=== PATIENT | male | born 1945 | race Hispanic/Latino ===

== ENCOUNTER 2023-11-19 13:30 | Observation (INO) | payer MEDICARE ==
[2023-11-19 14:25] LABS: #Basophils 0.1 thou/uL (0.0-0.2); #Eosinphils 0.1 thou/uL (0.0-0.7); #Monocytes 0.5 thou/uL (0.11-0.59); #Neutrophils 4.6 thou/uL (1.40-6.50); %Basophils 1.1 % (0.0-1.0); %Eosinophils 2.1 % (0.0-10.0); %Lymphocytes 18.8 % (21.0-51.0); %Neutrophils 69.4 % (42.0-75.0); Hematocrit 39.8 % (42.0-52.0); Mean Corpuscular HGB CONC 32.7 g/dL (32.0-36.0); Mean Corpuscular Hemoglobin 30.2 pg (27.0-31.0); Mean Corpuscular Volume 92.6 fl (78.0-98.0); Mean Platelet Volume 10.2 fL (7.4-10.4); Platelet Count 207 10x3/uL (130-400); RBC Distribution Width 13.6 % (11.5-14.5); White Blood Cell (WBC) Count 6.6 10x3/uL (4.8-10.8)
[2023-11-19] MEDS ORDERED: Aspirin Chewable 81 MG TAB ONE (14:34)
[2023-11-19 14:53] LABS: INR-International Normal Ratio 1.1; Prothrombin Time 14.4 sec (12.0-14.7)
[2023-11-19 14:54] LABS: PTT 30.1 sec (22.9-36.1)
[2023-11-19 14:58] LABS: ALT (SGPT) 8 U/L (8-55); AST (SGOT) 12 U/L (5-34); Albumin 3.5 g/dL (3.4-4.8); Alkaline Phosphatase 69 U/L (40-110); Anion Gap 7 mmol/L (10-20); BUN (Urea Nitrogen) 15 mg/dL (8.4-25.7); Bilirubin, Total 0.7 mg/dL (0.2-1.2); Calc. Creatinine Clearance 0 mL/min (70-130); Calcium 8.7 mg/dL (7.8-10.44); Carbon Dioxide 30 mmol/L (23-31); Chloride 103 mmol/L (98-107); Estimated GFR 57; Globulin 2.7 g/dL (2.4-3.5); Glucose 86 mg/dL (83-110); Lipase 10 U/L (8-78); Potassium 3.9 mmol/L (3.5-5.1); Protein, Total 6.2 g/dL (5.8-8.1); Sodium 136 mmol/L (136-145)
[2023-11-19 18:22] LABS: Troponin I 0.013 ng/mL (< 0.028)
[2023-11-19] MEDS ORDERED: Ondansetron ODT 4 MG TAB PO PRN (19:11)
[2023-11-19] MEDS ORDERED: Acetaminophen 325 MG TAB PO PRN (19:11)
[2023-11-19] MEDS ORDERED: Nicotine 21 MG PATCH TD SCH (19:15)
[2023-11-19 19:49] LABS: Hemoglobin A1c 5.6 % (4.0-6.0)
[2023-11-19 20:19] LABS: Cardiac Risk 3.1 (Less than 4.5)
[2023-11-19] MEDS ORDERED: Glucagon 1 MG/ML KIT IM PRN (20:38)
[2023-11-19] MEDS ORDERED: Dextrose 5% in Water 1,000 ML IV PRN (20:38)
[2023-11-19] MEDS ORDERED: HumaLOG 300 UNITS/3 ML VIAL SC PRN (20:38)
[2023-11-19] MEDS ORDERED: Dextrose 50% Abboject 50 ML SYRINGE SLOW IVP PRN (20:38)
[2023-11-19 21:26] VITALS: BMI 26.8
[2023-11-20 06:01] LABS: #Basophils 0.1 thou/uL (0.0-0.2); #Eosinphils 0.2 thou/uL (0.0-0.7); #Monocytes 0.6 thou/uL (0.11-0.59); #Neutrophils 5.5 thou/uL (1.40-6.50); %Basophils 0.9 % (0.0-1.0); %Lymphocytes 19.5 % (21.0-51.0); %Monocytes 7.6 % (0.0-10.0); %Neutrophils 69.6 % (42.0-75.0); Hemoglobin 12.8 g/dL (14.0-18.0); Mean Corpuscular Hemoglobin 29.6 pg (27.0-31.0); Mean Corpuscular Volume 92.4 fl (78.0-98.0); Mean Platelet Volume 10.5 fL (7.4-10.4); Platelet Count 207 10x3/uL (130-400); RBC Distribution Width 13.6 % (11.5-14.5); Red Blood Cell (RBC) Count 4.33 mill/uL (4.70-6.10); White Blood Cell (WBC) Count 7.9 10x3/uL (4.8-10.8)
[2023-11-20] MEDS ORDERED: HumaLOG 300 UNITS/3 ML VIAL SC PRN (06:05)
[2023-11-20 06:19] LABS: Anion Gap 10 mmol/L (10-20); BUN (Urea Nitrogen) 15 mg/dL (8.4-25.7); Calc. Creatinine Clearance 52 mL/min (70-130); Calcium 8.9 mg/dL (7.8-10.44); Carbon Dioxide 28 mmol/L (23-31); Chloride 106 mmol/L (98-107); Estimated GFR 63; Glucose 82 mg/dL (83-110); Potassium 4.3 mmol/L (3.5-5.1); Sodium 140 mmol/L (136-145)
[2023-11-20 08:17] LABS: Magnesium 1.9 mg/dL (1.6-2.6); Phosphorus 3.6 mg/dL (2.3-4.7)
[2023-11-20] MEDS: Aspirin Chewable 81 MG TAB PO SCH (08:39)
[2023-11-20] MEDS ORDERED: ADENOSINE 60 MG/20 ML SDV ONE (10:00)
[2023-11-20 12:16] VITALS: BP 139/72; TEMP 98.7
[2023-11-20] MEDS: Enoxaparin 40 MG (0.4 mL) SYRINGE SC SCH (12:44)
[2023-11-20] MEDS ORDERED: Atorvastatin Calcium 10 MG TAB PO SCH (21:00)
== END 2023-11-20 15:32 | disposition home or self-care (01) ==
LOC: ERS 13:30 → 2SW 17:19
PROVIDERS: ADMIT Student in an Organized Health Care Education/Training Program; ATTEND Student in an Organized Health Care Education/Training Program
DX: R07.81 Pleurodynia (principal); K21.9 Gastro-esophageal reflux disease without esophagitis; R79.89 Other specified abnormal findings of blood chemistry; E11.9 Type 2 diabetes mellitus without complications; I11.0 Hypertensive heart disease with heart failure; I50.1 Left ventricular failure, unspecified; E78.5 Hyperlipidemia, unspecified; I21.4 Non-ST elevation (NSTEMI) myocardial infarction; I20.89 Other forms of angina pectoris; I25.10 Atherosclerotic heart disease of native coronary artery without angina pectoris; Z79.84 Long term (current) use of oral hypoglycemic drugs; Z79.82 Long term (current) use of aspirin; Z79.899 Other long term (current) drug therapy
CPT/HCPCS: 71045; 78452; 80048; 80061; 82962 ×2; 83036; 83690; 83735; 83880; 84100; 84484 ×2; 85025; 85379; 85610; 85730; 93005; 93017; 99285; A9502; G0378 ×3; 36415; 36416; 80053; 84443; J0153